=== PATIENT | male | born 1935 | race American Indian/Alaskan Native ===

== ENCOUNTER 2018-02-08 19:14 | Outpatient (CLI) | payer MEDICARE | END 2018-02-08 19:15 | disposition home or self-care (01) | LOC: LAB 19:14 → EDBD 19:14 → LAB 19:15 | PROVIDERS: ATTEND Family Medicine | DX: H44.009 Unspecified purulent endophthalmitis, unspecified eye (principal) | CPT/HCPCS: 87116; 87220 ==